=== PATIENT | male | born 1995 | race Two or more races ===

== ENCOUNTER 2023-12-20 08:10 | Emergency (ER) | payer BC ==
[~2023-12-20] VITALS: Ht 180.3 cm; Wt 78.5 kg
[2023-12-20 08:35] VITALS: BP 125/89; PULSE 70; TEMP 98.2; O2SAT 100
[2023-12-20 08:39] LABS: BASOPHILS # (AUTO) 0.1 X10'3 (0-0.2); BASOPHILS % (AUTO) 0.7 % (0-1); EOSINOPHILS % (AUTO) 0.5 % (0-6); HEMATOCRIT 44.1 % (42.0-52.0); HEMOGLOBIN 14.9 g/dl (14.0-17.9); LYMPHOCYTES # (AUTO) 1.3 X10'3 (1.1-4.8); LYMPHOCYTES % (AUTO) 13.7 % (21-51); MEAN CORPUSCULAR HEMOGLOBIN 31.2 PG (27.0-31.0); MEAN CORPUSCULAR HGB CONC 33.8 g/dL (33.0-36.5); MEAN CORPUSCULAR VOLUME 92.2 FL (78-98); MEAN PLATELET VOLUME 8.6 FL (7.4-10.4); MONOCYTES # (AUTO) 0.5 X10'3 (0-0.9); NEUTROPHILS # (AUTO) 7.7 X10'3 (1.8-7.7); NEUTROPHILS % (AUTO) 80.1 % (42-75); PLATELET COUNT 216 X10'3 (140-440); RED BLOOD COUNT 4.78 X10'6 (4.70-6.10); RED CELL DISTRIBUTION WIDTH 12.7 % (11.5-14.5); WHITE BLOOD COUNT 9.6 X10'3 (4.5-11.0)
[2023-12-20 08:51] LABS: ALBUMIN 4.2 G/DL (3.4-5.0); ANION GAP 12 (8-16); BILIRUBIN,TOTAL 1.7 MG/DL (0.1-1.0); BLOOD UREA NITROGEN 14 MG/DL (7-18); BUN/CREATININE RATIO 12.4 (10.0-20.0); CALCIUM 9.3 MG/DL (8.5-10.1); CHLORIDE 103 MMOL/L (99-107); CREATININE 1.13 MG/DL (0.60-1.10); GLUCOSE 87 MG/DL (70-104); SODIUM 140 MMOL/L (135-145); TOTAL CARBON DIOXIDE 25.5 MMOL/L (24-32); TOTAL PROTEIN 7.9 G/DL (6.4-8.2); eCRCL 102 ML/MIN; eGFR 76 ML/MIN
[2023-12-20 08:52] LABS: ALANINE AMINOTRANSFERASE 43 U/L (12-78); ALBUMIN/GLOBULIN RATIO 1.1 (1.1-1.5); ALKALINE PHOSPHATASE 52 IU/L (46-116); ASPARTATE AMINO TRANSFERASE 40 U/L (10-37)
[2023-12-20 08:58] LABS: PRO BRAIN NATRIURETIC PEPTIDE 34 PG/ML (0-125)
[2023-12-20] MEDS ORDERED: morphine 4 MG/ML inj SYRINge IV ONE (09:10)
[2023-12-20 09:18] LABS: LIPASE 50 U/L (16-77)
[2023-12-20] MEDS: ondansetron/PF 4mg/2ml inj IV ONE (09:18)
[2023-12-20] MEDS: metoclopramide 5 mg/ml inj IV ONE (09:23)
[2023-12-20] MEDS: diphenhydrAMINE 50 mg/ml inj IV ONE (09:23)
[2023-12-20] MEDS: ketorolac trometh. 30mg/ml inj. IV ONE (09:29)
[2023-12-20] MEDS ORDERED: SUCR1TAB PO (10:12)
[2023-12-20 10:16] VITALS: RESP 14
== END 2023-12-20 10:36 | disposition home or self-care (01) ==
LOC: ER 08:10
DX: K29.20 Alcoholic gastritis without bleeding (principal); R10.84 Generalized abdominal pain; F12.90 Cannabis use, unspecified, uncomplicated
CPT/HCPCS: 36415; 80053; 83690; 83880; 84484; 85025; 93005; 96374; 96375; 99284; J1200; J1885; J2405; J2765